=== PATIENT | male | born 1935 | race Caucasian/White ===

== ENCOUNTER 2017-12-07 20:40 | Emergency (ER) | payer MEDICARE ==
[~2017-12-07] VITALS: Ht 170.2 cm; Wt 91.8 kg
[~2017-12-07 20:40] MED LIST: ASPIRIN LOW DOS81 MG PO; AVODART0.5 MG PO; CALCIUM600 M3 OR; COSAMIN DS1 CA1 OR; COUMADIN5 MG PO; CVS IRON45 MG OR; ECOTRIN325 MG PO; FEXOFENADINE H180 MG OR; FLOMAX0.4 M1 PO; HYTRIN2 MG PO; KEFLEX500 MG PO; MULTI VIT PO; TERAZOSIN2 MG OR; ULTRAM50 M1 PO
[2017-12-07 21:46] LABS: HEMATOCRIT 35.4 % (39.0-50.0); HEMOGLOBIN 11.9 g/dl (14.0-18.0); IMMATURE GRANULOCYTES 0.6 % (0.0-1.0); MEAN CELL VOLUME 95.2 fL CALC (80.0-100.0); MEAN CORPUSCULAR HGB CONC 33.6 g/L CALC (32.0-36.0); NEUT# 4.58 thou/uL (1.82-7.42); RED BLOOD COUNT 3.72 mill/uL (4.70-6.10); RED CELL DISTRI WIDTH 13.1 % (11.5-15.5)
[2017-12-07 21:59] LABS: ALBUMIN 3.8 g/dL (3.2-5.0); BILIRUBIN, TOTAL 0.6 mg/dL (0.0-1.4); CALCIUM 9.6 mg/dL (8.4-10.2); CREATININE 2.8 mg/dL (0.7-1.3); POTASSIUM 4.3 mmol/l (3.5-5.1); TOTAL PROTEIN 6.6 g/dL (6.3-8.2)
[2017-12-08] MEDS ORDERED: NAPROSYN500 MG PO (00:53)
[2017-12-08 01:00] VITALS: BP 168/72
== END 2017-12-08 01:00 | disposition home or self-care (01) ==
LOC: ED 20:40
PROVIDERS: Emergency Medicine
PROC: 2W3QX1Z Immobilization of Right Lower Leg using Splint (ICD-10-PCS; principal; 2017-12-08)
DX: S92.251A Displaced fracture of navicular [scaphoid] of right foot, initial encounter for closed fracture (principal); R22.41 Localized swelling, mass and lump, right lower limb

== ENCOUNTER 2020-01-28 15:41 | Observation (INO) | payer MEDICARE ==
[~2020-01-28] VITALS: Ht 152.4 cm; Wt 97.6 kg
[~2020-01-28 15:41] MED LIST changes: +NAPROSYN500 MG PO
[2020-01-28 16:16] LABS: HEMATOCRIT 35.5 % (39.0-50.0); HEMOGLOBIN 11.7 g/dl (14.0-18.0); NEUT# 4.85 thou/uL (1.82-7.42); RED BLOOD COUNT 3.66 mill/uL (4.70-6.10); RED CELL DISTRI WIDTH 13.6 % (11.5-15.5)
--- NOTE | 2020-01-28 16:23 | NUR ---
PT PRESENTS WITH SWOLLEN LEFT LEG THAT HAS BEEN INTERMITENTLY BEEN OCCURING EVER SINCE HE RECIEVED KNEE SURG MARCH 2019 PT STATES THAT IN THE LAST FEW DAYS THE SWELLING HAS BECAME WORSE AND HAS NOT RESOLVED, ALONG WITH THE PAIN THAT IS SCALED AT 4/10. PT DENIES CHEST PAIN, SOB, AND THE TEMP ON BOTH LEGS ARE SIMILAR. +PMS. PT DENIES ANY WEAKNESS, AOX4. WILL CONTINUE TO MONITOR.
[2020-01-28] MEDS ORDERED: ALLERGY RELIEF180 M1 PO (16:31)
[2020-01-28] MEDS ORDERED: TERAZOSIN1 MG PO (16:31)
[2020-01-28] MEDS ORDERED: ALENDRONATE SOD70 MG PO (16:34)
[2020-01-28 16:38] LABS: BILIRUBIN, TOTAL 0.8 mg/dL (0.0-1.4); CREATININE 2.8 mg/dL (0.7-1.3); POTASSIUM 4.8 mmol/l (3.5-5.1); TOTAL PROTEIN 7.4 g/dL (6.3-8.2)
[2020-01-28 16:40] LABS: PROTHROMBIN TIME 10.9 SECONDS (9.0-12.5)
--- NOTE | 2020-01-28 17:30 | NUR ---
PT RESTING ON STRETCHER WITH CALL LIGHT WITHIN REACH
--- NOTE | 2020-01-28 18:00 | NUR ---
PT NOTIFIED OF PENDING ADMISSION
--- NOTE | 2020-01-28 18:55 | NUR ---
PT TRANSPORTED TO [facility] STABLE AND IN NO DISTRESS VIA STRETCHER. CARE ASSUMED TO SANTANA. Admission Note Report Given to: Transported by: Wheelchair X Stretcher Transported with: X Nurse Transporter XPatent IV O2 X District Engineer Location: ICU X MS2
--- NOTE | 2020-01-28 19:08 | NUR ---
RECIEVED REPORT BY CHAPO
--- NOTE | 2020-01-28 20:20 | NUR ---
RECEIVED REPORT FROM NURSE CARRENO, PATIENT WAS TRANSPORTED VIA WHEELCHAIR PATIENT AMBULATED TO BED, CALL LIGHT AT REACH.
[2020-01-28 20:35] VITALS: BP 166/62
[2020-01-28 23:45] VITALS: BP 145/79
--- NOTE | 2020-01-29 00:20 | NUR ---
HERVARGAS ANDREWSIP HELD AT THIS TIME.
--- NOTE | 2020-01-29 01:20 | NUR ---
HE[NUNO ANDREWSIP RESUMED AT THIS TIME @ 1050UNITS INFUSING WELL.
[2020-01-29 04:08] VITALS: BP 148/68
[2020-01-29 05:06] LABS: HEMOGLOBIN 10.3 g/dl (14.0-18.0); MEAN CELL VOLUME 97.2 fL CALC (80.0-100.0); MEAN CORPUSCULAR HGB 32.3 pG CALC (26.0-32.0); MEAN CORPUSCULAR HGB CONC 33.2 g/dL CAL (32.0-36.0); RED BLOOD COUNT 3.19 mill/uL (4.70-6.10); RED CELL DISTRI WIDTH 13.5 % (11.5-15.5)
[2020-01-29 05:11] LABS: CREATININE 2.7 mg/dL (0.7-1.3); POTASSIUM 4.4 mmol/l (3.5-5.1)
--- NOTE | 2020-01-29 05:14 | NUR ---
PATIENT RESTING IN BED WITH EYES CLOSED, WITH EVEN UNLABORED BREATHING CALL LIGHT AT REACH.
--- NOTE | 2020-01-29 06:38 | NUR ---
PTT RESULT 63.7 THERAPEUTIC LEVEL, MAINTAINED @ 1050UNITS, ORDERED REPAEAT AFTER 6 HOURS @ 11:30.
--- NOTE | 2020-01-29 07:15 | NUR ---
CHANGE OF SHIFT REPORT RECEIVED FROM JACKIE TORRES. PT CONTINUES ON HEPARIN DRIP. TOUR LEADER WILL CONTINUE TO MONITOR
[2020-01-29 08:30] VITALS: BP 134/73
[2020-01-29 11:08] VITALS: BP 122/58
--- NOTE | 2020-01-29 12:14 | NUR ---
NEW ORDER RECEIVED TO D/C HEPARIN. HEPARIN D/C
--- NOTE | 2020-01-29 12:30 | NUR ---
AGUSTIN SANDRA REQUESTING THAT ELIQUIS SAMPLE BOX IN MED ROOM BE PUT INTO PHARMACY SECURITY BAG. ELIQUIS SAMPLE BOX PUT INTO PHARMACY SECURITY BAG AND LABELLED. BAG IN MEDICATION ROOM
[2020-01-29 15:18] VITALS: BP 140/62
[2020-01-29 19:15] VITALS: BP 140/60
--- NOTE | 2020-01-29 20:00 | NUR ---
PATIENT RESTING IN BED AT THIS TIME-EASY TO AROUSE. AWAKE ALERT AND ORIENTEDX3. PATIENT WITH NO COMPLAINTS AT THIS TIME. TELE MONITOR IN PLACE. SALINE LOCK INTACT TO RAC-SITE APPEARS HEALTHY AT THIS TIME. LLE IS SLIGHTLY RED AND SWOLLEN. PULSES ARE PALPABLE. ENCOURAGED ELEVATION OF LLE ON PILLOW. VOIDING QS YELLOW URINE IN URINAL. CALL LIGHT IN REACH. WILL CONT TO MONITOR.
[2020-01-30 00:09] VITALS: BP 156/69
--- NOTE | 2020-01-30 02:40 | NUR ---
PATIENT RESTING IN BED AT THIS TIME-APPEARS SLEEPING WITH EYES CLOSED. RESP ARE EVEN AND UNLABORED. TELE MONITOR IN PLACE. IVF PATENT AND INFUSING VIA RAC SITE AT KVO RATE. CALL LIGHT IN REACH. WILL CONT TO MONITOR.
--- NOTE | 2020-01-30 07:00 | NUR ---
SHIFT CHANGE REPORT, PT AWAKE ALERT AND ORIENTED RESTING IN BED, TELE MONITOR IN PLACE, NO C/O DISCOMFORT, BED IN LOWEST POSITION AND CALL MARIE IN REACH.
[2020-01-30 08:49] VITALS: BP 170/72
--- NOTE | 2020-01-30 09:35 | NUR ---
PT note 01/29/20 Patient receiving heparin. We will hold until he is on PO anitcoagulant
[2020-01-30] MEDS ORDERED: ELIQUIS2.5 MG PO (09:55)
[2020-01-30 11:22] VITALS: BP 148/70
[2020-01-30 12:10] VITALS: BP 148/70
--- NOTE | 2020-01-30 14:27 | NUR ---
Discharge instructions given. Patient verbalizes understanding of same. Discharged in stable condition via Wheelchair to Home with *Other. All belongings sent with pt. PT TRANSPORTED VIA W/C TO CAR IN PARKING LOT AND DROVE SELF HOME.
== END 2020-01-30 13:59 | disposition home or self-care (01) ==
LOC: ED 15:41 → ED-I 17:00 → ED 17:00 → ED-I 17:01 → ED 17:38 → ED-I 17:39 → MS2 17:39
PROVIDERS: Family Medicine; ADMIT Internal Medicine; ATTEND Internal Medicine
DX: I82.412 Acute embolism and thrombosis of left femoral vein (principal); I82.442 Acute embolism and thrombosis of left tibial vein; N18.4 Chronic kidney disease, stage 4 (severe); Z96.652 Presence of left artificial knee joint; R60.0 Localized edema
CPT/HCPCS: G0378; J1644

== ENCOUNTER 2020-02-11 | Emergency (ER) | payer MEDICARE ==
[~2020-02-11] MED LIST changes: +ALENDRONATE SOD70 MG PO; +ALLERGY RELIEF180 M1 PO; +ELIQUIS2.5 MG PO; +TERAZOSIN1 MG PO
[2020-02-11 17:14] LABS: HEMATOCRIT 34.1 % (39.0-50.0); HEMOGLOBIN 11.3 g/dl (14.0-18.0); MEAN CELL VOLUME 96.9 fL CALC (80.0-100.0); MEAN CORPUSCULAR HGB 32.1 pG CALC (26.0-32.0); MEAN CORPUSCULAR HGB CONC 33.1 g/dL CAL (32.0-36.0); NEUT# 5.44 thou/uL (1.82-7.42); RED BLOOD COUNT 3.52 mill/uL (4.70-6.10); RED CELL DISTRI WIDTH 13.2 % (11.5-15.5)
[2020-02-11 17:26] LABS: POTASSIUM 4.5 mmol/l (3.5-5.1)
== END 2020-02-11 18:02 | disposition home or self-care (01) ==
PROVIDERS: Family Medicine
DX: I82.402 Acute embolism and thrombosis of unspecified deep veins of left lower extremity (principal); Z79.01 Long term (current) use of anticoagulants

== ENCOUNTER 2022-10-29 17:42 | Inpatient (IN) | payer MEDICARE ==
[2022-10-29] VITALS (25 sets, daily range): BP systolic 123–152; BP diastolic 70–107
[~2022-10-29] VITALS: Ht 152.4 cm; Wt 77.1 kg
[2022-10-29 19:33] LABS: URINE BILIRUBIN - DIPSTICK NEGATIVE (NEGATIVE); URINE BLOOD DIPSTICK NEGATIVE (NEGATIVE); URINE COLOR YELLOW; URINE GLUCOSE - DIPSTICK NEGATIVE (NEGATIVE); URINE KETONE NEGATIVE (NEGATIVE); URINE LEUK ESTERASE TRACE (NEGATIVE); URINE NITRITE - DIPSTICK NEGATIVE (Negative); URINE PH 6.5 (4.5-8.0); URINE PROTEIN - DIPSTICK TRACE mg/dL (NEG-TRACE); URINE SPECIFIC GRAVITY 1.015; URINE UROBILINOGEN - DIPSTICK 0.2 E.U./dL (0.2)
[2022-10-29 19:34] LABS: BASO% 0.5 % (0-3); EOS% 6.7 % (0-8); HEMATOCRIT 39.3 % (39.0-50.0); HEMOGLOBIN 13.4 g/dl (14.0-18.0); IMMATURE GRANULOCYTES 0.4 % (0.0-5.0); LYMPH% 16.6 % (15-41); MEAN CELL VOLUME 104.5 fL CALC (80.0-100.0); MEAN CORPUSCULAR HGB 35.6 pG CALC (26.0-32.0); MEAN CORPUSCULAR HGB CONC 34.1 g/dL CAL (32.0-36.0); MONO% 8.1 % (2-13); NEUT# 5.07 thou/uL (1.82-7.42); NEUT% 67.7 % (42-76); RED BLOOD COUNT 3.76 mill/uL (4.70-6.10); RED CELL DISTRI WIDTH 13.4 % (11.5-15.5)
[2022-10-29 19:51] LABS: ALBUMIN 3.5 g/dL (3.2-5.0); POTASSIUM 4.2 mmol/l (3.5-5.1); TOTAL PROTEIN 6.5 g/dL (6.3-8.2)
[2022-10-29 19:52] LABS: BILIRUBIN, TOTAL 2.1 mg/dL (0.0-1.4)
[2022-10-30] VITALS: BP 135/86
[2022-10-30 00:33] VITALS: BP 141/86
[2022-10-30] MEDS ORDERED: TORSEMIDE20 M1 PO (00:57)
[2022-10-30] MEDS ORDERED: ASPIRIN LOW81 M1 PO (00:59)
[2022-10-30] MEDS ORDERED: VITAMIN B-12500 MCG PO (00:59)
[2022-10-30] MEDS ORDERED: IRON325 M1 PO (01:00)
[2022-10-30] MEDS ORDERED: OMEPRAZOLE20 MG PO (01:01)
[2022-10-30 03:52] VITALS: BP 115/72
[2022-10-30 05:27] LABS: BASO% 0.7 % (0-3); EOS% 9.7 % (0-8); HEMATOCRIT 36.8 % (39.0-50.0); HEMOGLOBIN 12.6 g/dl (14.0-18.0); IMMATURE GRANULOCYTES 0.5 % (0.0-5.0); LYMPH% 17.7 % (15-41); MEAN CELL VOLUME 105.1 fL CALC (80.0-100.0); MEAN CORPUSCULAR HGB CONC 34.2 g/dL CAL (32.0-36.0); MONO% 10.8 % (2-13); NEUT# 4.55 thou/uL (1.82-7.42); NEUT% 60.6 % (42-76); RED BLOOD COUNT 3.5 mill/uL (4.70-6.10); RED CELL DISTRI WIDTH 13.5 % (11.5-15.5)
[2022-10-30 07:09] LABS: ALBUMIN 3.1 g/dL (3.2-5.0); TOTAL PROTEIN 5.5 g/dL (6.3-8.2)
[2022-10-30 07:13] LABS: MAGNESIUM 2.7 mg/dL (1.6-2.3)
[2022-10-30 15:38] VITALS: BP 118/65
[2022-10-30 18:43] VITALS: BP 111/60
[2022-10-31] VITALS (8 sets, daily range): BP systolic 111–135; BP diastolic 59–84
[2022-10-31 05:19] LABS: BASO% 0.4 % (0-3); EOS% 9.9 % (0-8); HEMATOCRIT 36.6 % (39.0-50.0); HEMOGLOBIN 12.6 g/dl (14.0-18.0); IMMATURE GRANULOCYTES 0.7 % (0.0-5.0); LYMPH% 21.6 % (15-41); MEAN CELL VOLUME 103.4 fL CALC (80.0-100.0); MEAN CORPUSCULAR HGB 35.6 pG CALC (26.0-32.0); MEAN CORPUSCULAR HGB CONC 34.4 g/dL CAL (32.0-36.0); MONO% 9.4 % (2-13); NEUT# 5.21 thou/uL (1.82-7.42); RED BLOOD COUNT 3.54 mill/uL (4.70-6.10); RED CELL DISTRI WIDTH 13.6 % (11.5-15.5)
[2022-10-31 05:37] LABS: BILIRUBIN, TOTAL 1.2 mg/dL (0.0-1.4); CREATININE 4.2 mg/dL (0.7-1.3); POTASSIUM 3.8 mmol/l (3.5-5.1); TOTAL PROTEIN 5.5 g/dL (6.3-8.2)
[2022-10-31] MEDS ORDERED: TORSEMIDE20 M1 PO (08:34)
[2022-10-31] MEDS ORDERED: VITAMIN B-12500 MCG PO (08:34)
[2022-10-31] MEDS ORDERED: VITAMIN C500 M6 PO (08:35)
[2022-10-31] MEDS ORDERED: FERROUS SULF325 M3 PO (08:36)
[2022-10-31] MEDS ORDERED: OMEPRAZOLE20 MG PO (08:37)
[2022-10-31] MEDS ORDERED: VITAMIN D32000 UNI2 PO (08:39)
[2022-11-01 00:32] VITALS: BP 109/70
[2022-11-01 04:32] VITALS: BP 118/76
[2022-11-01 06:43] VITALS: BP 113/69
[2022-11-01 06:44] LABS: ALBUMIN 2.9 g/dL (3.2-5.0); BUN 59 mg/dL (8-23); CARBON DIOXIDE 21 mmol/l (22-30); CHLORIDE 110 mmol/l (95-108); CREATININE 4.1 mg/dL (0.7-1.3); GFR FOR AFR.AMER. 17 ML/MIN (>=60 (CALC)); GFR OTHER RACES 14 ML/MIN (>=60 (CALC)); MAGNESIUM 2.6 mg/dL (1.6-2.3); POTASSIUM 3.7 mmol/l (3.5-5.1); SODIUM 137 mmol/l (137-146)
[2022-11-01 11:10] VITALS: BP 118/59
[2022-11-01 15:29] VITALS: BP 147/84
[2022-11-01 18:21] VITALS: BP 119/79
[2022-11-02 00:24] VITALS: BP 107/57
[2022-11-02 04:46] VITALS: BP 107/62
[2022-11-02 06:35] LABS: BASO% 0.5 % (0-3); EOS% 9.4 % (0-8); HEMATOCRIT 32.5 % (39.0-50.0); HEMOGLOBIN 11.6 g/dl (14.0-18.0); IMMATURE GRANULOCYTES 0.5 % (0.0-5.0); LYMPH% 17.9 % (15-41); MEAN CELL VOLUME 102.8 fL CALC (80.0-100.0); MEAN CORPUSCULAR HGB 36.7 pG CALC (26.0-32.0); MEAN CORPUSCULAR HGB CONC 35.7 g/dL CAL (32.0-36.0); MONO% 10.6 % (2-13); NEUT# 5.33 thou/uL (1.82-7.42); NEUT% 61.1 % (42-76); RED BLOOD COUNT 3.16 mill/uL (4.70-6.10); RED CELL DISTRI WIDTH 13.7 % (11.5-15.5)
[2022-11-02 06:55] LABS: ALBUMIN 2.9 g/dL (3.2-5.0); BILIRUBIN, TOTAL 1.2 mg/dL (0.0-1.4); CREATININE 4.5 mg/dL (0.7-1.3); MAGNESIUM 2.5 mg/dL (1.6-2.3); POTASSIUM 3.6 mmol/l (3.5-5.1); TOTAL PROTEIN 5.3 g/dL (6.3-8.2)
[2022-11-02 07:00] VITALS: BP 116/73
[2022-11-02 11:22] VITALS: BP 114/59
[2022-11-02 15:08] VITALS: BP 111/73
[2022-11-02 19:06] VITALS: BP 121/72
[2022-11-03] VITALS (8 sets, daily range): BP systolic 105–125; BP diastolic 48–74
[2022-11-03 06:19] LABS: BASO% 0.6 % (0-3); HEMATOCRIT 32.4 % (39.0-50.0); HEMOGLOBIN 11.5 g/dl (14.0-18.0); IMMATURE GRANULOCYTES 0.7 % (0.0-5.0); LYMPH% 16.6 % (15-41); MEAN CELL VOLUME 103.8 fL CALC (80.0-100.0); MEAN CORPUSCULAR HGB 36.9 pG CALC (26.0-32.0); MEAN CORPUSCULAR HGB CONC 35.5 g/dL CAL (32.0-36.0); MONO% 11.3 % (2-13); NEUT# 5.45 thou/uL (1.82-7.42); NEUT% 62.8 % (42-76); RED BLOOD COUNT 3.12 mill/uL (4.70-6.10)
[2022-11-03 06:41] LABS: ALBUMIN 2.9 g/dL (3.2-5.0); BILIRUBIN, TOTAL 1.1 mg/dL (0.0-1.4); CREATININE 4.8 mg/dL (0.7-1.3); POTASSIUM 3.4 mmol/l (3.5-5.1); TOTAL PROTEIN 5.6 g/dL (6.3-8.2)
[2022-11-04] VITALS (55 sets, daily range): BP systolic 86–124; BP diastolic 48–85
[2022-11-04 05:53] LABS: BASO% 0.6 % (0-3); EOS% 4.6 % (0-8); HEMATOCRIT 31.9 % (39.0-50.0); HEMOGLOBIN 11.2 g/dl (14.0-18.0); IMMATURE GRANULOCYTES 0.6 % (0.0-5.0); LYMPH% 15.3 % (15-41); MEAN CELL VOLUME 102.9 fL CALC (80.0-100.0); MEAN CORPUSCULAR HGB 36.1 pG CALC (26.0-32.0); MEAN CORPUSCULAR HGB CONC 35.1 g/dL CAL (32.0-36.0); MONO% 9.5 % (2-13); NEUT# 7.1 thou/uL (1.82-7.42); NEUT% 69.4 % (42-76); RED BLOOD COUNT 3.1 mill/uL (4.70-6.10)
[2022-11-04 06:19] LABS: ALBUMIN 3.1 g/dL (3.2-5.0); CREATININE 4.8 mg/dL (0.7-1.3); POTASSIUM 3.5 mmol/l (3.5-5.1)
[2022-11-05] VITALS (100 sets, daily range): BP systolic 56–124; BP diastolic 21–76
[2022-11-05 05:54] LABS: BASO% 0.3 % (0-3); EOS% 4.1 % (0-8); HEMOGLOBIN 10.2 g/dl (14.0-18.0); IMMATURE GRANULOCYTES 0.6 % (0.0-5.0); LYMPH% 14.8 % (15-41); MEAN CELL VOLUME 103.6 fL CALC (80.0-100.0); MEAN CORPUSCULAR HGB 36.4 pG CALC (26.0-32.0); MEAN CORPUSCULAR HGB CONC 35.2 g/dL CAL (32.0-36.0); MONO% 9.4 % (2-13); NEUT# 7.04 thou/uL (1.82-7.42); NEUT% 70.8 % (42-76); RED BLOOD COUNT 2.8 mill/uL (4.70-6.10)
[2022-11-05 05:58] LABS: CREATININE 4.7 mg/dL (0.7-1.3); POTASSIUM 3.6 mmol/l (3.5-5.1)
[2022-11-05 06:00] LABS: ALBUMIN 2.3 g/dL (3.2-5.0)
[2022-11-06] VITALS (104 sets, daily range): BP systolic 48–138; BP diastolic 24–102
[2022-11-06 07:48] LABS: BASO% 0.6 % (0-3); EOS% 5.6 % (0-8); HEMATOCRIT 31.9 % (39.0-50.0); HEMOGLOBIN 11.4 g/dl (14.0-18.0); IMMATURE GRANULOCYTES 0.8 % (0.0-5.0); LYMPH% 12.4 % (15-41); MEAN CELL VOLUME 101.9 fL CALC (80.0-100.0); MEAN CORPUSCULAR HGB 36.4 pG CALC (26.0-32.0); MEAN CORPUSCULAR HGB CONC 35.7 g/dL CAL (32.0-36.0); MONO% 11.1 % (2-13); NEUT# 6.92 thou/uL (1.82-7.42); NEUT% 69.5 % (42-76); RED BLOOD COUNT 3.13 mill/uL (4.70-6.10); RED CELL DISTRI WIDTH 13.9 % (11.5-15.5)
[2022-11-06 08:47] LABS: CREATININE 4.6 mg/dL (0.7-1.3); MAGNESIUM 2.5 mg/dL (1.6-2.3)
[2022-11-06 13:18] LABS: URINE BILIRUBIN - DIPSTICK NEGATIVE (NEGATIVE); URINE BLOOD DIPSTICK MODERATE (NEGATIVE); URINE COLOR YELLOW; URINE GLUCOSE - DIPSTICK NEGATIVE (NEGATIVE); URINE KETONE NEGATIVE (NEGATIVE); URINE LEUK ESTERASE NEGATIVE (NEGATIVE); URINE PROTEIN - DIPSTICK NEGATIVE (NEG-TRACE); URINE UROBILINOGEN - DIPSTICK 0.2 E.U./dL (0.2)
[2022-11-06 13:41] LABS: URINE NITRITE - DIPSTICK NEGATIVE (Negative); URINE WBC 0-2 WBC/hpf (0-5)
[2022-11-07] VITALS (96 sets, daily range): BP systolic 45–153; BP diastolic 27–97
[2022-11-08] VITALS (83 sets, daily range): BP systolic 54–174; BP diastolic 27–107
[2022-11-08 06:07] LABS: BASO% 0.4 % (0-3); EOS% 5.4 % (0-8); HEMATOCRIT 29.8 % (39.0-50.0); HEMOGLOBIN 10.4 g/dl (14.0-18.0); IMMATURE GRANULOCYTES 0.4 % (0.0-5.0); LYMPH% 14.3 % (15-41); MEAN CELL VOLUME 103.5 fL CALC (80.0-100.0); MEAN CORPUSCULAR HGB 36.1 pG CALC (26.0-32.0); MEAN CORPUSCULAR HGB CONC 34.9 g/dL CAL (32.0-36.0); MONO% 8.5 % (2-13); NEUT# 6.76 thou/uL (1.82-7.42); RED BLOOD COUNT 2.88 mill/uL (4.70-6.10); RED CELL DISTRI WIDTH 14.4 % (11.5-15.5)
[2022-11-08 06:22] LABS: ALBUMIN 2.4 g/dL (3.2-5.0); CREATININE 3.9 mg/dL (0.7-1.3); POTASSIUM 4.1 mmol/l (3.5-5.1)
[2022-11-09] VITALS (69 sets, daily range): BP systolic 81–147; BP diastolic 27–108
[2022-11-09 05:55] LABS: HEMATOCRIT 30.5 % (39.0-50.0); HEMOGLOBIN 10.7 g/dl (14.0-18.0); MEAN CELL VOLUME 104.5 fL CALC (80.0-100.0); MEAN CORPUSCULAR HGB 36.6 pG CALC (26.0-32.0); MEAN CORPUSCULAR HGB CONC 35.1 g/dL CAL (32.0-36.0); RED BLOOD COUNT 2.92 mill/uL (4.70-6.10); RED CELL DISTRI WIDTH 14.6 % (11.5-15.5)
[2022-11-09 06:16] LABS: CREATININE 3.9 mg/dL (0.7-1.3); MAGNESIUM 2.2 mg/dL (1.6-2.3); POTASSIUM 3.4 mmol/l (3.5-5.1)
[2022-11-10] VITALS (42 sets, daily range): BP systolic 58–159; BP diastolic 32–102
[2022-11-10 07:44] LABS: ALBUMIN 2.3 g/dL (3.2-5.0); CREATININE 3.7 mg/dL (0.7-1.3); POTASSIUM 3.7 mmol/l (3.5-5.1)
[2022-11-11] VITALS (29 sets, daily range): BP systolic 67–158; BP diastolic 48–85
[2022-11-11 09:43] LABS: HEMATOCRIT 35.6 % (39.0-50.0); MEAN CELL VOLUME 104.7 fL CALC (80.0-100.0); MEAN CORPUSCULAR HGB 35.3 pG CALC (26.0-32.0); MEAN CORPUSCULAR HGB CONC 33.7 g/dL CAL (32.0-36.0); RED BLOOD COUNT 3.4 mill/uL (4.70-6.10); RED CELL DISTRI WIDTH 14.5 % (11.5-15.5)
[2022-11-11 10:01] LABS: CREATININE 3.7 mg/dL (0.7-1.3); POTASSIUM 3.5 mmol/l (3.5-5.1)
[2022-11-12] VITALS (38 sets, daily range): BP systolic 68–136; BP diastolic 34–107
[2022-11-12 06:30] LABS: HEMATOCRIT 31.8 % (39.0-50.0); HEMOGLOBIN 10.6 g/dl (14.0-18.0); MEAN CELL VOLUME 105.6 fL CALC (80.0-100.0); MEAN CORPUSCULAR HGB 35.2 pG CALC (26.0-32.0); MEAN CORPUSCULAR HGB CONC 33.3 g/dL CAL (32.0-36.0); RED BLOOD COUNT 3.01 mill/uL (4.70-6.10); RED CELL DISTRI WIDTH 14.3 % (11.5-15.5)
[2022-11-12 06:42] LABS: ALBUMIN 2.6 g/dL (3.2-5.0); BILIRUBIN, TOTAL 1.2 mg/dL (0.0-1.4); CREATININE 3.5 mg/dL (0.7-1.3); MAGNESIUM 2.1 mg/dL (1.6-2.3); POTASSIUM 3.6 mmol/l (3.5-5.1); TOTAL PROTEIN 4.8 g/dL (6.3-8.2)
[2022-11-13] VITALS (27 sets, daily range): BP systolic 81–156; BP diastolic 39–114
[2022-11-13 06:10] LABS: ALBUMIN 2.7 g/dL (3.2-5.0); CREATININE 3.7 mg/dL (0.7-1.3)
[2022-11-13 06:13] LABS: POTASSIUM 3.9 mmol/l (3.5-5.1)
[2022-11-14] VITALS (33 sets, daily range): BP systolic 74–164; BP diastolic 40–83
[2022-11-14 05:55] LABS: BASO% 0.1 % (0-3); EOS% 0.1 % (0-8); HEMATOCRIT 33.8 % (39.0-50.0); HEMOGLOBIN 11.5 g/dl (14.0-18.0); IMMATURE GRANULOCYTES 0.6 % (0.0-5.0); LYMPH% 8.2 % (15-41); MEAN CELL VOLUME 104.6 fL CALC (80.0-100.0); MEAN CORPUSCULAR HGB 35.6 pG CALC (26.0-32.0); MONO% 3.8 % (2-13); NEUT# 13.65 thou/uL (1.82-7.42); NEUT% 87.2 % (42-76); RED BLOOD COUNT 3.23 mill/uL (4.70-6.10); RED CELL DISTRI WIDTH 14.5 % (11.5-15.5)
[2022-11-14 06:31] LABS: ALBUMIN 2.7 g/dL (3.2-5.0); BILIRUBIN, TOTAL 0.9 mg/dL (0.0-1.4); CREATININE 4.1 mg/dL (0.7-1.3); TOTAL PROTEIN 5.1 g/dL (6.3-8.2)
[2022-11-15] VITALS (95 sets, daily range): BP systolic 79–212; BP diastolic 36–169
[2022-11-15 05:44] LABS: HEMATOCRIT 31.9 % (39.0-50.0); MEAN CELL VOLUME 104.2 fL CALC (80.0-100.0); MEAN CORPUSCULAR HGB 35.9 pG CALC (26.0-32.0); MEAN CORPUSCULAR HGB CONC 34.5 g/dL CAL (32.0-36.0); RED BLOOD COUNT 3.06 mill/uL (4.70-6.10); RED CELL DISTRI WIDTH 14.2 % (11.5-15.5)
[2022-11-15 05:53] LABS: ALBUMIN 2.7 g/dL (3.2-5.0); BILIRUBIN, TOTAL 0.9 mg/dL (0.0-1.4); CREATININE 4.7 mg/dL (0.7-1.3); MAGNESIUM 2.3 mg/dL (1.6-2.3); TOTAL PROTEIN 5.2 g/dL (6.3-8.2)
[2022-11-16] VITALS (45 sets, daily range): BP systolic 88–167; BP diastolic 46–69
[2022-11-16 04:03] LABS: HEMATOCRIT 30.7 % (39.0-50.0); HEMOGLOBIN 10.4 g/dl (14.0-18.0); MEAN CELL VOLUME 104.8 fL CALC (80.0-100.0); MEAN CORPUSCULAR HGB 35.5 pG CALC (26.0-32.0); MEAN CORPUSCULAR HGB CONC 33.9 g/dL CAL (32.0-36.0); RED BLOOD COUNT 2.93 mill/uL (4.70-6.10); RED CELL DISTRI WIDTH 14.4 % (11.5-15.5)
[2022-11-16 04:20] LABS: ALBUMIN 2.6 g/dL (3.2-5.0); CREATININE 4.9 mg/dL (0.7-1.3); MAGNESIUM 2.4 mg/dL (1.6-2.3); POTASSIUM 3.6 mmol/l (3.5-5.1); TOTAL PROTEIN 5.1 g/dL (6.3-8.2)
[2022-11-16] MEDS ORDERED: HYDROCORTISONE5 MG PO (08:20)
[2022-11-16] MEDS ORDERED: MIDODRINE10 MG PO (08:20)
[2022-11-16] MEDS ORDERED: FLORINEF0.1 MG PO (08:20)
== END 2022-11-16 12:45 | DRG 193 ==
LOC: ED 17:42 → ED-I 20:11 → ED 20:55 → MS2 20:56 → ICU 11-04 10:48
PROVIDERS: Internal Medicine; Internal Medicine Nephrology; Nurse Practitioner; Nurse Practitioner Family; ADMIT Internal Medicine; ATTEND Internal Medicine
PROC: 0W993ZZ Drainage of Right Pleural Cavity, Percutaneous Approach (ICD-10-PCS; principal; 2022-11-04)
PROC: 0W9930Z Drainage of Right Pleural Cavity with Drainage Device, Percutaneous Approach (ICD-10-PCS; 2022-11-04)
PROC: 0WP9X0Z Removal of Drainage Device from Right Pleural Cavity, External Approach (ICD-10-PCS; 2022-11-05)
PROC: 0T9B70Z Drainage of Bladder with Drainage Device, Via Natural or Artificial Opening (ICD-10-PCS; 2022-11-06)
PROC: 3E033XZ Introduction of Vasopressor into Peripheral Vein, Percutaneous Approach (ICD-10-PCS; 2022-11-08)
DX: J18.9 Pneumonia, unspecified organism (principal); I50.33 Acute on chronic diastolic (congestive) heart failure; N17.0 Acute kidney failure with tubular necrosis; N18.4 Chronic kidney disease, stage 4 (severe); E87.20 Acidosis, unspecified; E87.1 Hypo-osmolality and hyponatremia; C34.2 Malignant neoplasm of middle lobe, bronchus or lung; J91.0 Malignant pleural effusion; J94.2 Hemothorax; I48.91 Unspecified atrial fibrillation; E86.9 Volume depletion, unspecified; D63.1 Anemia in chronic kidney disease; E83.39 Other disorders of phosphorus metabolism; E87.6 Hypokalemia; I95.9 Hypotension, unspecified; Z86.718 Personal history of other venous thrombosis and embolism; Z20.822 Contact with and (suspected) exposure to COVID-19; Z79.01 Long term (current) use of anticoagulants; Z85.118 Personal history of other malignant neoplasm of bronchus and lung
CPT/HCPCS: J1250; J3370

== ENCOUNTER 2023-01-05 16:21 | Emergency (ER) | payer MEDICARE ==
[2023-01-05] VITALS (11 sets, daily range): BP systolic 94–139; BP diastolic 37–82
[~2023-01-05] VITALS: Ht 152.4 cm; Wt 83.4 kg
[~2023-01-05 16:21] MED LIST changes: +ASPIRIN LOW81 M1 PO; +FERROUS SULF325 M3 PO; +FLORINEF0.1 MG PO; +HYDROCORTISONE5 MG PO; +IRON325 M1 PO; +MIDODRINE10 MG PO; +OMEPRAZOLE20 MG PO; +TORSEMIDE20 M1 PO; +VITAMIN B-12500 MCG PO; +VITAMIN C500 M6 PO; +VITAMIN D32000 UNI2 PO
[2023-01-05 18:09] LABS: BASO% 0.6 % (0-3); EOS% 4.1 % (0-8); HEMATOCRIT 28.8 % (39.0-50.0); HEMOGLOBIN 8.9 g/dl (14.0-18.0); IMMATURE GRANULOCYTES 0.7 % (0.0-5.0); LYMPH% 14.1 % (15-41); MEAN CELL VOLUME 105.1 fL CALC (80.0-100.0); MEAN CORPUSCULAR HGB 32.5 pG CALC (26.0-32.0); MEAN CORPUSCULAR HGB CONC 30.9 g/dL CAL (32.0-36.0); MONO% 9.5 % (2-13); NEUT# 6.07 thou/uL (1.82-7.42); RED BLOOD COUNT 2.74 mill/uL (4.70-6.10); URINE BILIRUBIN - DIPSTICK NEGATIVE (NEGATIVE); URINE BLOOD DIPSTICK TRACE-INTACT (NEGATIVE); URINE COLOR YELLOW; URINE GLUCOSE - DIPSTICK NEGATIVE (NEGATIVE); URINE KETONE NEGATIVE (NEGATIVE); URINE PROTEIN - DIPSTICK TRACE mg/dL (NEG-TRACE); URINE SPECIFIC GRAVITY 1.025; URINE UROBILINOGEN - DIPSTICK 0.2 E.U./dL (0.2)
[2023-01-05 18:12] LABS: URINE LEUK ESTERASE MODERATE (NEGATIVE); URINE NITRITE - DIPSTICK NEGATIVE (Negative)
[2023-01-05 18:29] LABS: URINE WBC 50-100 WBC/hpf (0-5)
[2023-01-05 18:34] LABS: ALKALINE PHOSPHATASE 300 u/l (38-126); BILIRUBIN, TOTAL 1.3 mg/dL (0.2-1.3); CHLORIDE 111 mmol/l (95-108); SGOT/AST 72 u/l (19-48); SODIUM 137 mmol/l (137-146)
[2023-01-05 18:38] LABS: ANION GAP 12 (6-22 (CALC)); BUN 65 mg/dL (8-23); BUN/CREATININE RATIO 17 (12-20 (CALC)); CARBON DIOXIDE 19 mmol/l (22-30); CREATININE 3.9 mg/dL (0.7-1.3); GFR FOR AFR.AMER. 18 ML/MIN (>=60 (CALC)); GFR OTHER RACES 15 ML/MIN (>=60 (CALC)); POTASSIUM 4.9 mmol/l (3.5-5.1); TOTAL PROTEIN 6.2 g/dL (6.3-8.2)
== END 2023-01-06 00:42 | disposition short-term general hospital (02) ==
LOC: ED 16:21
PROVIDERS: Nurse Practitioner
DX: C78.2 Secondary malignant neoplasm of pleura (principal); D64.9 Anemia, unspecified; C80.1 Malignant (primary) neoplasm, unspecified; N18.4 Chronic kidney disease, stage 4 (severe); I48.91 Unspecified atrial fibrillation; I48.92 Unspecified atrial flutter; Z79.01 Long term (current) use of anticoagulants

== ENCOUNTER 2023-01-15 09:54 | Emergency (ER) | payer MEDICARE ==
[~2023-01-15] VITALS: Ht 170.2 cm; Wt 87.6 kg
[2023-01-15] VITALS (15 sets, daily range): BP systolic 92–115; BP diastolic 41–59
[2023-01-15 12:34] LABS: URINE BILIRUBIN - DIPSTICK NEGATIVE (NEGATIVE); URINE BLOOD DIPSTICK MODERATE (NEGATIVE); URINE COLOR YELLOW; URINE GLUCOSE - DIPSTICK NEGATIVE (NEGATIVE); URINE KETONE NEGATIVE (NEGATIVE); URINE PROTEIN - DIPSTICK 30 mg/dL (NEG-TRACE); URINE SPECIFIC GRAVITY 1.015; URINE UROBILINOGEN - DIPSTICK 0.2 E.U./dL (0.2)
[2023-01-15 12:36] LABS: BASO% 0.2 % (0-3); EOS% 1.1 % (0-8); HEMATOCRIT 24.6 % (39.0-50.0); HEMOGLOBIN 7.6 g/dl (14.0-18.0); IMMATURE GRANULOCYTES 0.5 % (0.0-5.0); LYMPH% 11.6 % (15-41); MEAN CELL VOLUME 104.7 fL CALC (80.0-100.0); MEAN CORPUSCULAR HGB 32.3 pG CALC (26.0-32.0); MEAN CORPUSCULAR HGB CONC 30.9 g/dL CAL (32.0-36.0); NEUT# 6.69 thou/uL (1.82-7.42); NEUT% 75.6 % (42-76); RED BLOOD COUNT 2.35 mill/uL (4.70-6.10); RED CELL DISTRI WIDTH 15.6 % (11.5-15.5)
[2023-01-15 12:40] LABS: URINE LEUK ESTERASE MODERATE (NEGATIVE); URINE NITRITE - DIPSTICK NEGATIVE (Negative)
[2023-01-15 12:44] LABS: ALBUMIN 2.9 g/dL (3.2-5.0); BILIRUBIN, TOTAL 1.3 mg/dL (0.2-1.3); TOTAL PROTEIN 5.7 g/dL (6.3-8.2)
[2023-01-15] MEDS ORDERED: BUMETANIDE1 MG PO (12:46)
[2023-01-15] MEDS ORDERED: OMNICEF300 M1 PO (12:46)
[2023-01-15] MEDS ORDERED: FINASTERIDE5 MG PO (12:47)
[2023-01-15] MEDS ORDERED: LORATADINE10 M1 PO (12:47)
[2023-01-15] MEDS ORDERED: POTASSIUM99 MG PO (12:48)
[2023-01-15] MEDS ORDERED: TERAZOSIN1 MG PO (12:49)
[2023-01-15] MEDS ORDERED: SODIUM BICARBI650 MG PO (12:49)
[2023-01-15] MEDS ORDERED: VITAMIN B-12500 MCG PO (12:50)
[2023-01-15 12:52] LABS: URINE WBC 50-100 WBC/hpf (0-5)
== END 2023-01-15 15:34 | disposition short-term general hospital (02) ==
LOC: ED 09:54 → ED-I 10:04 → ED 15:34
PROVIDERS: Family Medicine
PROC: 0T9B70Z Drainage of Bladder with Drainage Device, Via Natural or Artificial Opening (ICD-10-PCS; principal; 2023-01-15)
DX: J90 Pleural effusion, not elsewhere classified (principal); A04.72 Enterocolitis due to Clostridium difficile, not specified as recurrent; U07.1 COVID-19; S20.211A Contusion of right front wall of thorax, initial encounter; S70.01XA Contusion of right hip, initial encounter; N18.4 Chronic kidney disease, stage 4 (severe); I48.91 Unspecified atrial fibrillation; I48.92 Unspecified atrial flutter; W19.XXXA Unspecified fall, initial encounter; Y92.009 Unspecified place in unspecified non-institutional (private) residence as the place of occurrence of the external cause; Z86.718 Personal history of other venous thrombosis and embolism; Z87.01 Personal history of pneumonia (recurrent)